=== PATIENT | male | born 1970 | race Hispanic/Latino ===

== ENCOUNTER 2018-01-05 09:48 | Inpatient (IN) | payer MEDICAID ==
[2018-01-05 09:48] VITALS: BMI 29.9
[2018-01-05 10:40] LABS: BASO % 0.7 % (0.0-2.0); EOS # 0.2 K/uL (0.0-0.7); EOS % 2.2 % (0.0-4.0); HEMOGLOBIN 10.4 g/dL (12.0-18.0); LYMPH # 1.2 K/uL (1.0-4.3); LYMPH % 17.1 % (20.0-40.0); MEAN CELL VOLUME 73.6 fL (80.0-94.0); MEAN CORPUSCULAR HEMOGLOBIN 24.5 pg (27.0-31.0); MEAN CORPUSCULAR HGB CONC 33.3 g/dL (33.0-37.0); MEAN PLATELET VOLUME 6.7 fL (7.2-11.7); MONO # 0.7 K/uL (0.0-0.8); MONO % 9.4 % (0.0-10.0); NEUT % 70.6 % (50.0-75.0); RBC 4.26 Mil/uL (4.40-5.90); RED CELL DISTRIBUTION WIDTH 17.2 % (11.5-14.5); WHITE BLOOD COUNT 7.1 K/uL (4.8-10.8)
[2018-01-05 10:46] LABS: URINE BILIRUBIN NEGATIVE (NEGATIVE); URINE BLOOD NEGATIVE (NEGATIVE); URINE CLARITY Clear (Clear); URINE COLOR Yellow (YELLOW); URINE GLUCOSE (UA) NORMAL (Normal); URINE LEUKOCYTE ESTERASE NEG Leu/uL (Negative); URINE PROTEIN NEGATIVE (NEGATIVE); URINE UROBILINOGEN NORMAL mg/dL (0.2-1.0)
[2018-01-05 10:54] LABS: ALB/GLOB RATIO 1.2 (1.0-2.1); ALBUMIN 3.8 g/dL (3.5-5.0); ALT/SGPT 19 U/L (21-72); AST/SGOT 17 U/L (17-59); BLOOD UREA NITROGEN 14 mg/dL (9-20); CALCIUM 9.2 mg/dl (8.6-10.4); GFR AFRICAN-AMERICAN > 60; GFR NON-AFRICAN AMERICAN > 60
[2018-01-05 11:03] LABS: BARBITURATES, UR NEGATIVE (NEGATIVE); BENZODIAZEPINES, UR NEGATIVE (NEGATIVE); PHENCYCLIDINE, UR NEGATIVE (NEGATIVE)
[2018-01-05 11:21] LABS: OPIATES, UR POSITIVE (NEGATIVE)
--- NOTE | 2018-01-05 12:06 | C.PDOC ---
History Of Present Illness 47 y/o male presents to the ER for detox from ETOH and substance abuse. Patient denies having suicidal ideation, homicidal ideation, and active physical complaints. Time Seen by Provider: 01/05/18 09:59 Chief Complaint (Nursing): Substance Abuse History Per: Patient History/Exam Limitations: no limitations Past Medical History Reviewed: Historical Data, Nursing Documentation, Vital Signs Vital Signs: Last Vital Signs Temp 98.7 F 01/05/18 09:52 Pulse 76 01/05/18 09:52 Resp 17 01/05/18 09:52 BP 119/78 01/05/18 09:52 Pulse Ox 97 01/05/18 12:06 - Medical History PMH: Denies: Depression, Diabetes, Hepatitis, HIV, HTN, Seizures, Sexually Transmitted Disease Surgical History: No Surg Hx - [facility] Procedures APPLICATION OF SPLINT (12/01/05) CLOSURE SKIN & SUBCUTANEOUS NEC (12/01/05) Family History: States: No Known Family Hx - Social History Hx Tobacco Use: No Hx Alcohol Use: Yes Hx Substance Use: Yes - Immunization History Hx Tetanus Toxoid Vaccination: Yes Hx Influenza Vaccination: Yes Hx Pneumococcal Vaccination: No Review Of Systems Except As Marked, All Systems Reviewed And Found Negative. Constitutional: Negative for: Fever, Chills Psych: Negative for: Suicidal ideation Physical Exam - Physical Exam Appears: No Acute Distress Skin: Normal Color, Warm, Dry Head: Atraumatic, Normacephalic Eye(s): bilateral: Normal Inspection Nose: Normal Oral Mucosa: Moist Neck: Supple Chest: Symmetrical Cardiovascular: Rhythm Regular Respiratory: Normal Breath Sounds, No Rales, No Rhonchi, No Wheezing Gastrointestinal/Abdominal: Normal Exam, Bowel Sounds ((+) bowel sounds), Soft, No Tenderness, No Guarding, No Rebound Neurological/Psych: Oriented x3, Normal Speech ED Course And Treatment - Laboratory Results Result Diagrams: 01/05/18 10:36 01/05/18 10:36 O2 Sat by Pulse Oximetry: 97 (RA) Pulse Ox Interpretation: Normal Medical Decision Making Medical Decision Making: Assessment: ETOH/ Substance Abuse Plan: --Labs --UA --Librium PO Updates: Patient has been medically cleared and evaluated by Crisis. Patient has been admitted under Dr. Pastor's service. Disposition Discussed With : Aleyda Pastor Doctor Will See Patient In The: Hospital Counseled Patient/Family Regarding: Studies Performed, Diagnosis - Disposition Disposition: HOSPITALIZED Disposition Time: 12:06 Condition: FAIR Forms: [facility] (Malawian) - Clinical Impression Clinical Impression: Opiate abuse, continuous - Scribe Statement The provider has reviewed the documentation as recorded by the Manuelibe Favian Moya Provider Attestation: All medical record entries made by the Scribe were at my direction and personally dictated by me. I have reviewed the chart and agree that the record accurately reflects my personal performance of the history, physical exam, medical decision making, and the department course for this patient. I have also personally directed, reviewed, and agree with the discharge instructions and disposition.
--- NOTE | 2018-01-05 13:14 | PCM.BM ---
<Ginny Cruz - Last Filed: 01/05/18 13:12> Treatment Plan Problems - Problems identified on initial assessmt Potential for alcohol withdrawals Date Initiated: 01/05/18 Assessment reference: NA Treatment assets and liabiliti Patient Assests: cooperative, ADL independent, physically healthy, negotiates basic needs Patient Liabilities: substance abuse - Milieu Protocol Maintain good personal hygiene: daily Encourage regular showers, daily Remind patient to perform daily oral care, daily Assist patient to perform ADL's Conduct patient checks and document Observation sheet: Q15 minutes Maintain personal safety: every shift Educate patient to report safety concerns to staff, every shift Monitor environment for contraband/sharps Medication safety: Monitor for expected outcome, potential side effects: every shift, Assess barriers to learning: every shift, Assess readiness for medication education: every shift <Aleyda Pastor - Last Filed: 01/07/18 10:21> - Diagnosis (1) Alcohol use disorder, severe, dependence Status: Acute Interventions: 01/07/18 10:21 * Assess 7x/week regarding severity of withdrawal * Educate regarding risks, benefits, side effects and alternatives of medications * Use Motivational Interviewing for abstinence * Use CBT for relapse prevention * Medication management for withdrawal symptoms * Encourage medication assisted treatment * (2) Opiate abuse, continuous Status: Acute Interventions: 01/07/18 10:21 * Assess 7x/week regarding severity of withdrawal * Educate regarding risks, benefits, side effects and alternatives of medications * Use Motivational Interviewing for abstinence * Use CBT for relapse prevention * Medication management for withdrawal symptoms * Encourage medication assisted treatment *
[2018-01-05] MEDS ORDERED: Aluminum Hydroxide/Magnesium Hydroxide Susp (30 mL) PO PRN (13:20)
--- NOTE | 2018-01-05 13:24 | PCM.PSYCH ---
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 No seizures or DTs Denies heroin, cigarettes, other drugs He was in [facility] in 2000 for opiates No psych hx NO medical hx No family psych hx Current Medications: Active Medications Generic Name Dose Route Start Last Admin Trade Name Freq PRN Reason Stop Dose Admin Al Hydrox/Mg Hydrox/Simethicone 30 ml 01/05/18 13:20 Maalox 30 Ml PO TID PRN Indigestion / Heartburn Chlordiazepoxide 25 mg 01/05/18 13:19 Librium PO Q4H PRN Alcohol Withdrawal Clonidine HCl 0.1 mg 01/05/18 13:19 Catapres PO Q4H PRN Symptoms of alcohol withdrawl Folic Acid 1 mg 01/05/18 13:30 Folic Acid PO DAILY DASH Loperamide HCl 2 mg 01/05/18 13:20 Imodium PO Q8 PRN Diarrhea Multivitamins 1 tab 01/05/18 13:30 Hexavitamin PO DAILY DASH Ondansetron HCl 4 mg 01/05/18 13:20 Zofran Tab PO Q8 PRN Nausea/Vomiting Thiamine HCl 100 mg 01/05/18 13:30 Vitamin B1 Tab PO DAILY DASH Past Psychiatric History - Past Psychiatric History Previous Treatment History: None Pertinent Medical Hx (Current Medical&Sleep Prob, Allergies): Allergies Allergy/AdvReac Type Severity Reaction Status Date / Time No Known Allergies Allergy Verified 01/05/18 09:55 Ibuprofen [Motrin Tab] 600 mg PO Q8 PRN #20 tab 04/08/17 Tamsulosin [Flomax] 0.4 mg PO DAILY #10 cap 04/08/17 oxyCODONE/Acetaminophen [Percocet 5/325 mg Tab] 1 ea PO Q6 PRN #10 tab 04/08/17 Review of Systems - Psychiatric Psychiatric: Abnormal Sleep Pattern, Anxiety, Difficulty Concentrating. absent : Homicidal Ideation, Paranoia, Suicidal Ideation Mental Status Examination - Personal Presentation Personal Presentation: Looks stated age (oddly related) - Affect Affect: Constricted - Motor Activity Motor Activity: Calm - Reliability in Providing Information Reliability in Providing Information: Fair - Speech Speech: Organized - Mood Mood: Anxious - Formal Thought Process Formal Thought Process: No Impairment - Cognitive Functions Orientation: Person, Place, Situation, Time Sensorium: Alert Attention/Concentration: Attentive Estimate of Intelligence: Average Judgement: Intact, as evidence by: Insight regarding need for hospitalization Memory: Recent intact, as evidence by: Ability to recall events of the day, Remote intact, as evidenced by: Abilit to recall sig. life events - Risk Risk: Withdrawal, Diminished functioning - Strength & Assets Inventory Strength & Assets Inventory: Employment history, Cooperative - Limitations Limitations: Living alone DSM 5 DX - DSM 5 DSM 5 Diagnosis: Alcohol use d/o - severe Opioid use d/o - severe Anemia, likely Iron deficiency - Recommended/Plan of Treatment Treatment Recommendations and Plan of Treatment: librium and methadone detoxes As needed medications Gabapentin for augmentation if needed All risks, benefits and alternatives of medications, including no medications, discussed and the patient understood and agreed. Attend groups and activities Supportive therapy and psychoeducation MS for abstinence CBT for relapse prevention Encourage MAT Refer to rehab or IOP Attend self-help groups as well MS for smoking cessation and patch if needed 34 min Projected ELOS: 4 days - Smoking Cessation Smoking Cessation Initiated: No Reason for not providing: non smoker
[2018-01-05] MEDS: Multiple Vitamins Tab PO SCH (13:54)
[2018-01-05 17:14] LABS: IRON 15 ug/dL (49-181)
[2018-01-05 17:25] LABS: % IRON SATURATION 4 (20-55); TOTAL IRON BINDING CAPACITY 430 ug/dL (250-450)
[2018-01-05 17:51] LABS: FERRITIN 11.8 ng/mL
[2018-01-06] MEDS: Multiple Vitamins Tab PO SCH (09:36)
--- NOTE | 2018-01-06 14:15 | PCM.PYCHPN ---
Psychiatric Progress Note - Psychiatric Progress Note Patient seen today, length of contact: 16 min Patient Chief Complaint: "anxious" Problems Identified/Issues Discussed: The pt is seen, chart reviewed, case discussed with staff. The pt is compliant with medications and reports no side-effects. Symptoms are improving but needs more time to stabilize. After care discussed, support and psychoeducation given. He asked for a note to prove he completed detox, which he needed to resume work Sx-triggered detox Will go to [facility] in [place] Medication Change: Yes (add feosol) Medical Record Reviewed: Yes Mental Status Examination - Cognitive Function Orientation: Person, Place, Situation, Time Memory: Intact Attention: Poor Concentration: Poor Association: WNL Fund of Knowledge: WNL - Mood Mood: Anxious - Affect Affect: Constricted - Speech Speech: Appropriate - Formal Thought Process Formal Thought Process: No Impairment - Suicidal Ideation Suicidal Ideation: No - Homicidal Ideation Homicidal Ideation: No Goal/Treatment Plan - Goal/Treatment Plan Need for Continued Stay: Discharge may exacerbated symptoms, Severe functional impairment Progress Toward Problem(s) and Goals/Treatment Plan: Continue medications Support and psychoeducation daily Attend groups and activities daily After care planning by DIANE Estimated Date of D/C: 01/07/18
[2018-01-07 06:11] VITALS: RESP 20
[2018-01-07 08:27] VITALS: BP 130/82; PULSE 83; TEMP 98.5; O2SAT 99
[2018-01-07] MEDS: Multiple Vitamins Tab PO SCH (09:43)
--- NOTE | 2018-01-07 23:55 | PCM.PYCHDC ---
Mental Status Examination - Mental Status Examination Orientation: Person, Place, Situation, Time Memory: Intact Mood: Neutral Affect: Other (Appropriate) Speech: Appropriate Attention: WNL Concentration: WNL Association: WNL Fund of Knowledge: WNL Formal Thought Process: No Impairment Description of patient's judgement and insight: Fair Psychotic Thoughts and Behaviors: None Suicidal Ideation: No Current Homicidal Ideation?: No Discharge Summary - Discharge Note Reason for Hospitalization: Opiate use disorder Alcohol use disorder Laboratory Data: Reviewed Consultations:: List each consultation separately and include: 1. Reason for request. 2. Findings. 3. Follow-up Summary of Hospital Course include:: 1. Description of specific treatment plan utilized for patients during their course of treatmen. 2. Summarize the time- course for resolution of acute symptoms and/or regressed behaviors. 3. Describe issues identified and worked on during hospitalization. 4. Describe medication utilized. 5. Describe medical problems identified and treated. 6. 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 No seizures or DTs Denies heroin, cigarettes, other drugs He was in [facility] in 2000 for opiates During his stay in the hospital patient was treated with Librium, buprenorphine and other medications. With treatment, patient started feeling better, had no withdrawal symptoms. Today patient was stable and ready for discharge. At the time of evaluation and discharge, patient was awake alert oriented 3, had no delusions, no auditory or visual hallucinations, no suicidal ideations or homicidal ideations. Patient was discharged in a stable condition. - Final Diagnosis (DSM 5) Condition upon Discharge: GOOD DSM 5: Improving with treatment Disposition: HOME/ ROUTINE Follow-up Treatment Plan: Patient will go to [facility] for follow-up care after discharge from the hospital. Prescriptions/Medication Reconciliation: cloNIDine [Catapres] 0.1 mg PO BID PRN #20 tab PRN Reason: Symptoms Of Alcohol Withdrawl Docusate [Colace] 100 mg PO DAILY #30 cap Ferrous Sulfate [Feosol] 325 mg PO TID #90 tab Gabapentin [Neurontin] 300 mg PO TID #60 cap Tamsulosin [Flomax] 0.4 mg PO DAILY #30 cap traZODone [Desyrel] 100 mg PO HS #30 tab - Smoking Cessation Smoking Cessation Medication prescribed: No - Antipsychotic Medications Pt discharged on 2 or more routine antipsychotic medications: No
== END 2018-01-07 12:20 | disposition home or self-care (01) | DRG 745 ==
LOC: C.ER 09:48 → C.9E 12:05 → C.7D 12:28
PROVIDERS: ADMIT Psychiatry & Neurology Psychiatry; ATTEND Psychiatry & Neurology Psychiatry
DX: F11.10 Opioid abuse, uncomplicated (principal); F10.20 Alcohol dependence, uncomplicated; D50.9 Iron deficiency anemia, unspecified

== ENCOUNTER 2018-07-23 12:35 | Emergency (ER) | payer MEDICAID ==
--- NOTE | 2018-07-23 13:06 | C.PDOC ---
History Of Present Illness 48 yr old male w/ hx of etoh abuse and depression p/w request for detox. Pt notes that he was at [facility] yesterday and d/c after etoh. He denies drinking etoh since and is requesting detox from percocet and heroin abuse. No recent use of either over the past 48 hours. No falls or trauma. No neck pain, headache, fever, chills or night sweats. No dark or bloody stool. No constipation or diarrhea. No abdominal pain. No chest pain. No other complaints. Time Seen by Provider: 07/23/18 13:05 Past Medical History - Medical History PMH: Depression Denies: Diabetes, Hepatitis, HIV, HTN, Seizures, Sexually Transmitted Disease - [facility] Procedures APPLICATION OF SPLINT (12/01/05) CLOSURE SKIN & SUBCUTANEOUS NEC (12/01/05) Family History: States: Unknown Family Hx - Social History Hx Tobacco Use: No Hx Alcohol Use: Yes (Beer) Hx Substance Use: Yes (PERCOCET) - Immunization History Hx Tetanus Toxoid Vaccination: Yes Hx Influenza Vaccination: Yes Hx Pneumococcal Vaccination: No Review Of Systems Constitutional: Negative for: Fever, Chills, Sweats, Weakness, Malaise Eyes: Negative for: Pain, Vision Change ENT: Negative for: Ear Pain, Ear Discharge, Nose Congestion, Mouth Pain Cardiovascular: Negative for: Chest Pain, Palpitations, Edema, Light Headedness Respiratory: Negative for: Cough, Shortness of Breath, SOB with Excertion Gastrointestinal: Negative for: Nausea, Vomiting, Abdominal Pain, Constipation Genitourinary: Negative for: Dysuria, Hematuria Musculoskeletal: Negative for: Neck Pain, Back Pain Skin: Negative for: Rash Neurological: Negative for: Weakness, Numbness, Seizures, Headache Psych: Negative for: Anxiety, Depression, Suicidal ideation, Withdrawal Physical Exam - Physical Exam Appears: Well, Non-toxic, No Acute Distress Skin: Normal Color, Warm Head: Atraumatic, Normacephalic Eye(s): bilateral: Normal Inspection, PERRL, EOMI Nose: Normal Oral Mucosa: Moist Tongue: Normal Appearing Lips: Normal Appearing Gingiva: Normal Appearing Neck: Normal, Normal ROM, Supple, Other (no meningeal signs) Chest: Symmetrical Cardiovascular: Rhythm Regular Respiratory: Normal Breath Sounds Gastrointestinal/Abdominal: Normal Exam, Soft, No Tenderness, No Distention, No Guarding Back: Normal Inspection, No CVA Tenderness Neurological/Psych: Oriented x3, Normal Speech, Normal Cognition, No Cerebellar Signs, Normal Motor Gait: Steady Medical Decision Making Medical Decision Makin yr old male w/ hx of depression, etoh abus, opiate abuse p/w request for detox. no meningeal signs. unremarkable neuro exam. Pt w/ steady gait and no signs of withdrawal. no other issues per pt. No other complaints. Will contact [facility]. [phone] appreciate consult w/ [facility]: No beds available pt given materials and resources for f/u. pt has not other complaints and denies any SI or HI or depression. Neuro exam remains unremarkable and pt denies any other complaints Pt in NAD, Clear for d/c home. Disposition - Disposition Disposition Time: 14:00 Condition: GOOD - Clinical Impression Clinical Impression: Drug abuse, Desire for detoxification
[2018-07-23 13:17] VITALS: BMI 33.5
[2018-07-23 13:19] VITALS: BP 129/75; PULSE 94; RESP 18; TEMP 98.5; O2SAT 96
== END 2018-07-23 14:07 | disposition home or self-care (01) ==
LOC: C.ER 12:35
DX: F19.10 Other psychoactive substance abuse, uncomplicated (principal)

== ENCOUNTER 2018-08-13 18:02 | Inpatient (IN) | payer MEDICAID ==
[2018-08-13 18:02] VITALS: BMI 27.3
[2018-08-13 19:31] LABS: BASO # 0.1 K/uL (0.0-0.2); BASO % 0.9 % (0.0-2.0); EOS # 0.3 K/uL (0.0-0.7); EOS % 4.2 % (0.0-4.0); HEMOGLOBIN 8.1 g/dL (12.0-18.0); LYMPH # 1.3 K/uL (1.0-4.3); LYMPH % 21.9 % (20.0-40.0); MEAN CELL VOLUME 61.3 fL (80.0-94.0); MEAN CORPUSCULAR HEMOGLOBIN 18.6 pg (27.0-31.0); MEAN CORPUSCULAR HGB CONC 30.3 g/dL (33.0-37.0); MEAN PLATELET VOLUME 6.5 fL (7.2-11.7); MONO # 0.7 K/uL (0.0-0.8); MONO % 11.6 % (0.0-10.0); NEUT # 3.7 K/uL (1.8-7.0); NEUT % 61.4 % (50.0-75.0); RBC 4.38 Mil/uL (4.40-5.90); RED CELL DISTRIBUTION WIDTH 18.7 % (11.5-14.5)
[2018-08-13 19:37] LABS: URINE BACTERIA FEW (<OCC); URINE BILIRUBIN 1+ (NEGATIVE); URINE BLOOD NEGATIVE (NEGATIVE); URINE CLARITY Clear (Clear); URINE COLOR Yellow (YELLOW); URINE GLUCOSE (UA) NORMAL (Normal); URINE LEUKOCYTE ESTERASE NEG Leu/uL (Negative); URINE PROTEIN NEGATIVE (NEGATIVE)
--- NOTE | 2018-08-13 19:38 | C.PDOC ---
History Of Present Illness 48 y/o male presents to ED requesting heroin and percocet detox. Patient states last use was by snorting. Patient reports no medical problems and has no physical complaints at this moment. Patient denies fever, chills, nausea, dizzi ness, palpitations, generalized weakness, or vomiting. Patient is currently starting to feel jittery. Time Seen by Provider: 08/13/18 18:59 Chief Complaint (Nursing): Substance Abuse History Per: Patient History/Exam Limitations: no limitations Onset/Duration Of Symptoms: Days Current Symptoms Are (Timing): Still Present Past Medical History Reviewed: Historical Data, Nursing Documentation, Vital Signs Vital Signs: Last Vital Signs Temp 98.4 F 08/13/18 18:09 Pulse 91 H 08/13/18 18:09 Resp 20 08/13/18 18:09 BP 101/67 08/13/18 18:09 Pulse Ox 95 08/13/18 18:09 - Medical History PMH: Depression Denies: Diabetes, Hepatitis, HIV, HTN, Seizures, Sexually Transmitted Disease - [facility] Procedures APPLICATION OF SPLINT (12/01/05) CLOSURE SKIN & SUBCUTANEOUS NEC (12/01/05) Family History: States: No Known Family Hx - Social History Hx Tobacco Use: No Hx Alcohol Use: Yes (Beer) Hx Substance Use: Yes (PERCOCET) - Immunization History Hx Tetanus Toxoid Vaccination: Yes Hx Influenza Vaccination: Yes Hx Pneumococcal Vaccination: No Review Of Systems Except As Marked, All Systems Reviewed And Found Negative. Constitutional: Negative for: Fever, Chills Gastrointestinal: Negative for: Nausea, Vomiting Physical Exam - Physical Exam Appears: Non-toxic, No Acute Distress Skin: Warm, Dry, No Rash Head: Atraumatic, Normacephalic Eye(s): bilateral: Normal Inspection, PERRL, EOMI Oral Mucosa: Moist Neck: Normal ROM, Supple Chest: Symmetrical Cardiovascular: Rhythm Regular, No Murmur Respiratory: Normal Breath Sounds, No Rales, No Rhonchi, No Wheezing Gastrointestinal/Abdominal: Soft, No Tenderness Extremity: Bilateral: Atraumatic, Normal Color And Temperature, Normal ROM Neurological/Psych: Oriented x3, Normal Speech Gait: Steady ED Course And Treatment - Laboratory Results Result Diagrams: 08/13/18 19:26 08/13/18 19:26 O2 Sat by Pulse Oximetry: 95 (RA) Pulse Ox Interpretation: Normal Medical Decision Making Medical Decision Making: Plan: --Bloodwork --Urinalysis Patient medically cleared. He is anemic, but asymptomatic. H/H steady decrease since last year, recommend medical consult or medical follow up upon D/C. Disposition - Disposition Disposition: HOSPITALIZED Disposition Time: 21:10 Condition: STABLE Forms: [facility] ([place] Islander) - Clinical Impression Clinical Impression: Opioid use disorder, Alcohol use disorder - Scribe Statement The provider has reviewed the documentation as recorded by the Alyse Peterson Provider Attestation: All medical record entries made by the Alyse were at my direction and personally dictated by me. I have reviewed the chart and agree that the record accurately reflects my personal performance of the history, physical exam, medical decision making, and the department course for this patient. I have also personally directed, reviewed, and agree with the discharge instructions and disposition. Decision To Admit - Pt Status Changed To: Hospital Disposition Of: Inpatient - Admit Certification Admit to Inpatient:: After my assessment, the patient will require hospitalization for at least two midnights. This is because of the severity of symptoms shown, intensity of services needed, and/or the medical risk in this patient being treated as an outpatient. - InPatient: Physician Admission Certification: I certify that this patient requires 2 or more midnights of care for the following reason:: needs inpatient detox, - . Bed Request Type: Detox Patient Diagnosis: Opioid use disorder, Alcohol use disorder
[2018-08-13 19:48] LABS: ALB/GLOB RATIO 1.4 (1.0-2.1); ALBUMIN 3.9 g/dL (3.5-5.0); ALT/SGPT 22 U/L (21-72); AST/SGOT 34 U/L (17-59); BARBITURATES, UR NEGATIVE (NEGATIVE); BENZODIAZEPINES, UR NEGATIVE (NEGATIVE); BLOOD UREA NITROGEN 14 mg/dL (9-20); GFR NON-AFRICAN AMERICAN > 60; PHENCYCLIDINE, UR NEGATIVE (NEGATIVE)
[2018-08-13 19:53] LABS: OPIATES, UR POSITIVE (NEGATIVE)
--- NOTE | 2018-08-13 21:32 | PCM.BM ---
<Gayatri Alfaro - Last Filed: 08/13/18 21:30> Treatment Plan Problems - Problems identified on initial assessmt potiential for opiate withdrawal Date Initiated: 08/13/18 Time Initiated: 21:31 Assessment reference: NA Status: Active Treatment assets and liabiliti Patient Assests: cooperative, ADL independent, physically healthy, negotiates basic needs Patient Liabilities: substance abuse, medical problems - Milieu Protocol Maintain good personal hygiene: daily Encourage regular showers, daily Remind patient to perform daily oral care, daily Assist patient to perform ADL's Maintain personal safety: every shift Educate patient to report safety concerns to staff, every shift Monitor environment for contraband/sharps Medication safety: Monitor for expected outcome, potential side effects: every shift, Assess barriers to learning: every shift, Assess readiness for medication education: every shift <Jessie Baker - Last Filed: 08/16/18 11:14> Family Contact Family involvement: Famliy/SO not involved - Goals for Treatment Patient goals for treatment: Complete detox and transition to short term rehab. Discharge/Continuing Care - Education Needs Education Needs: Patient Medication, Patient Diagnosis/Disease Process, Patient Coping Skills, Patient Anger Management skills, Patient Placement options, Patient Community resources - Discharge Discharge Criteria: No longer exhibiting s/s of withdrawal, Reduction of target symptoms Discharge to:: Substance Abuse Rehab - Treatment Team Participation Patient/Family/SO Statement: 08/16/18 11:13 "I wanna go to rehab but only for a month..." Discussed with Family/SO: No Was Patient/Family/SO present at Treatment Team Meeting: Yes
[2018-08-13] MEDS ORDERED: Aluminum Hydroxide/Magnesium Hydroxide Susp (30 mL) PO PRN (21:49)
--- NOTE | 2018-08-14 11:29 | PCM.PSYCH ---
Initial Psychiatric Evaluation - Initial Psychiatric Evaluation Type of Admission: Voluntary Legal Status: Capacity Chief Complaint (in patient's own words): "I don't feel well" History of Present Illness and Precipitating Events: Patient is seen, chart reviewed, case discussed. Patient is a 48 year old male who is currently single, homeless, and is unemployed. He came to detox yesterday morning for detox from heroin. He last used 10 bags of heroin, yesterday. He normally does 1-2 bundles a day. Hes been using heroin for 2-3 years, through sniffing. Before using heroin, he used to use Percocet, for several months. He obtained Percocet from the street. Dose unknown. He says he came to detox 5 months ago. When asked about alcohol use, he states that he drinks a 6 pack of beer, a day. He denies tobacco use. For psychiatric history, he states that recently he felt very depressed and unable to function but he now denies any suicidal or homicidal ideation. He says his sleep is so so, his energy is low, and he currently feels guilty. He also occasionally gets racing thoughts. He denies any auditory or visual hallucinations. From 2000 to 2005 he was incarcerated for selling drugs and guns. As per patient, hes been locked up and in and out of youth houses since he was 10 years old. As a child, he saw a therapist for "hyperactivity" and took special ed classes for his dyslexia. Psych History- As above, no admissions or suicide attempts. He looks slightly cognitively impaired. Family Psych History -denies. PMH- Anemia (iron deficiency) Current Medications: Active Medications Generic Name Dose Route Start Last Admin Trade Name Faina PRN Reason Stop Dose Admin Al Hydrox/Mg Hydrox/Simethicone 30 ml 08/13/18 21:49 Maalox 30 Ml PO TID PRN Indigestion / Heartburn Clonidine HCl 0.1 mg 08/13/18 21:49 Catapres PO Q4 PRN COWS Score More or Equal to 5 Dicyclomine HCl 10 mg 08/13/18 21:55 Bentyl PO Q6 PRN Abdominal cramps Gabapentin 300 mg 08/14/18 10:00 08/14/18 09:50 Neurontin PO 300 mg TID DASH Administration Ibuprofen 400 mg 08/13/18 21:54 Motrin Tab PO Q6 PRN Pain, moderate (4-7) Loperamide HCl 2 mg 08/13/18 21:49 Imodium PO Q8 PRN Diarrhea Methadone HCl 15 mg 08/14/18 10:00 08/14/18 09:50 Methadone PO 08/17/18 09:59 15 mg Q24H DASH Administration Taper Ondansetron HCl 4 mg 08/13/18 21:49 Zofran Tab PO Q8 PRN Nausea/Vomiting Trazodone HCl 50 mg 08/13/18 22:00 08/13/18 22:08 Desyrel PO 50 mg HS DASH Administration Past Psychiatric History - Past Psychiatric History Previous Treatment History: Intensive Outpatient Pertinent Medical Hx (Current Medical&Sleep Prob, Allergies): Allergies Allergy/AdvReac Type Severity Reaction Status Date / Time No Known Allergies Allergy Verified 08/07/18 00:16 No Known Home Med 08/13/18 Review of Systems - Neurological Neurological: Tremor - Psychiatric Psychiatric: Abnormal Sleep Pattern, Anhedonia, Anxiety, Depression, Difficulty Concentrating. absent: Hallucinations, Homicidal Ideation, Paranoia, Suicidal Ideation Mental Status Examination - Personal Presentation Personal Presentation: Looks stated age (odd, slow in response) - Affect Affect: Constricted - Motor Activity Motor Activity: Calm - Reliability in Providing Information Reliability in Providing Information: Fair - Speech Speech: Organized (but slowed) - Mood Mood: Depressed, Anxious - Formal Thought Process Formal Thought Process: No Impairment - Cognitive Functions Orientation: Person, Place, Situation, Time Sensorium: Alert Attention/Concentration: Easily distracted Abstract Thinking: [place] Estimate of Intelligence: Below average Judgement: Intact, as evidence by: Insight regarding need for hospitalization Memory: Recent intact, as evidence by: Ability to recall events of the day, Remote impaired as evidenced by: Inability to recall sig life events - Risk Risk: Withdrawal, Diminished functioning - Strength & Assets Inventory Strength & Assets Inventory: Cooperative - Limitations Limitations: Living alone, Other DSM 5 DX - DSM 5 DSM 5 Diagnosis: Opioid withdrawal Opioid use d/o - severe Alcohol use d/o - moderate Depressive d/o - unspecified r/o borderline ID Learning disorder - unspecified - Recommended/Plan of Treatment Treatment Recommendations and Plan of Treatment: Taper with Methadone Gabapentin for augmentation if needed Monitor alcohol wdw Remeron for depression Feosol for anemia Lab work for anemia As needed medications All risks, benefits and alternatives of the meds discussed, and the pt agreed and understood. Attend groups and activities Supportive therapy and psychoeducation [place] for abstinence CBT for relapse prevention Encourage MAT Refer to rehab or IOP, and self-help groups Teach healthy lifestyle methods, i.e. diet, exercise, meditation 34 min Projected ELOS: 5 days - Smoking Cessation Smoking Cessation Initiated: Yes
[2018-08-14 16:43] VITALS: RESP 18
[2018-08-15] MEDS ORDERED: Ergocalciferol 50,000 Intl Units Cap PO SCH (00:30)
[2018-08-15] MEDS: Multiple Vitamins Tab PO SCH (09:54)
[2018-08-15] MEDS ORDERED: Bacitracin 500 Units/gm Oint Foilpak UD TOP PRN (09:57)
[2018-08-15 14:12] LABS: IRON 291 ug/dL (49-181)
[2018-08-15 14:22] LABS: % IRON SATURATION 70 (20-55); TOTAL IRON BINDING CAPACITY 417 ug/dL (250-450)
[2018-08-15 14:47] LABS: FERRITIN 9.4 ng/mL
--- NOTE | 2018-08-15 18:30 | RAD ---
HISTORY: rehab COMPARISON: No prior. TECHNIQUE: Chest PA and lateral FINDINGS: LUNGS: No focal consolidation. Please note that chest x-ray has limited sensitivity for the detection of pulmonary masses. PLEURA: No significant pleural effusion identified. No definite pneumothorax . CARDIOVASCULAR: Heart size appears within normal limits. No atherosclerotic calcification present. OSSEOUS STRUCTURES: Degenerative changes of the spine. VISUALIZED UPPER ABDOMEN: Unremarkable. OTHER FINDINGS: None. IMPRESSION: No focal consolidation.
[2018-08-16] MEDS: Multiple Vitamins Tab PO SCH (09:03)
--- NOTE | 2018-08-16 09:54 | PCM.PYCHDC ---
Mental Status Examination - Mental Status Examination Orientation: Person, Place, Situation, Time Memory: Intact Mood: Anxious Affect: Constricted Speech: Appropriate Attention: WNL Concentration: WNL Association: WNL Fund of Knowledge: WNL Formal Thought Process: No Impairment Suicidal Ideation: No Current Homicidal Ideation?: No Discharge Summary - Discharge Note Laboratory Data: Abnormal Lab Results 08/15/18 08/15/18 08/15/18 13:54 13:54 13:54 ESR 13 Retic Count 1.4 Iron 291 H TIBC 417 % Saturation 70 H Ferritin 9.4 TSH 3rd Generation 1.37 Consultations:: List each consultation separately and include: 1. Reason for request. 2. Findings. 3. Follow-up Summary of Hospital Course include:: 1. Description of specific treatment plan utilized for patients during their course of treatmen. 2. Summarize the time- course for resolution of acute symptoms and/or regressed behaviors. 3. Describe issues identified and worked on during hospitalization. 4. Describe medication utilized. 5. Describe medical problems identified and treated. 6. Reassessment of suicide risk Summary of Hospital Course: Patient is seen, chart reviewed, case discussed. Patient is a 48 year old male who is currently single, homeless, and is unemployed. He came to detox yesterday morning for detox from heroin. He last used 10 bags of heroin, yesterday. He normally does 1-2 bundles a day. Hes been using heroin for 2-3 years, through sniffing. Before using heroin, he used to use Percocet, for several months. He obtained Percocet from the street. Dose unknown. He says he came to detox 5 months ago. When asked about alcohol use, he states that he drinks a 6 pack of beer, a day. He denies tobacco use. For psychiatric history, he states that recently he felt very depressed and unable to function but he now denies any suicidal or homicidal ideation. He says his sleep is so so, his energy is low, and he currently feels guilty. He also occasionally gets racing thoughts. He denies any auditory or visual hallucinations. From 2000 to 2005 he was incarcerated for selling drugs and guns. As per patient, hes been locked up and in and out of youth houses since he was 10 years old. As a child, he saw a therapist for "hyperactivity" and took special ed classes for his dyslexia. Psych History- As above, no admissions or suicide attempts. He looks slightly cognitively impaired. Family Psych History -denies. PMH- Anemia (iron deficiency) Hospital course: The pt was admitted and started on treatment with psychotherapy, support, psychoeducation and medications. AL and CBT used. The pt attended groups and activities, as well as milieu therapy. All the risks and benefits of medications are discussed and the patient understood and agreed. The pt improved with the treatments provided. After care discussed with the patient. He will go to [facility] in [place]. - Final Diagnosis (DSM 5) Condition upon Discharge: STABLE DSM 5: Opioid withdrawal Opioid use d/o - severe Alcohol use d/o - moderate Depressive d/o - unspecified r/o borderline ID Learning disorder - unspecified Disposition: HOME/ ROUTINE Follow-up Treatment Plan: Continue below medications after discharge. Follow after care plan as discussed. Use relapse prevention skills Return to ER or call 911 if suicidal, homicidal or symptoms relapse. Stay away from stress, alcohol and drugs. See primary doctor regularly and get labs. Prescriptions/Medication Reconciliation: Gabapentin [Neurontin] 300 mg PO TID #90 cap traZODone [Desyrel] 50 mg PO HS #30 tab
--- NOTE | 2018-08-16 09:54 | PCM.PYCHPN ---
Psychiatric Progress Note - Psychiatric Progress Note Patient Chief Complaint: "I don't feel well" Medication Change: Yes Medical Record Reviewed: Yes Mental Status Examination - Cognitive Function Orientation: Person - Mood Mood: Depressed, Anxious - Affect Affect: Constricted - Formal Thought Process Formal Thought Process: No Impairment - Homicidal Ideation Homicidal Ideation: No Goal/Treatment Plan - Goal/Treatment Plan Progress Toward Problem(s) and Goals/Treatment Plan: Taper with Methadone Gabapentin for augmentation if needed Monitor alcohol wdw Remeron for depression Feosol for anemia Lab work for anemia As needed medications All risks, benefits and alternatives of the meds discussed, and the pt agreed and understood. Attend groups and activities Supportive therapy and psychoeducation [place] for abstinence CBT for relapse prevention Encourage MAT Refer to rehab or IOP, and self-help groups Teach healthy lifestyle methods, i.e. diet, exercise, meditation 34 min
[2018-08-16 11:08] VITALS: BP 107/71; PULSE 89; TEMP 99.8; O2SAT 97
== END 2018-08-16 11:00 | disposition home or self-care (01) | DRG 745 ==
LOC: C.ER 18:02 → C.7D 21:11
PROC: GZHZZZZ Group Psychotherapy (ICD-10-PCS; principal; 2018-08-13)
PROC: GZ56ZZZ Individual Psychotherapy, Supportive (ICD-10-PCS; 2018-08-13)
DX: F11.23 Opioid dependence with withdrawal (principal); F10.10 Alcohol abuse, uncomplicated; F32.9 Major depressive disorder, single episode, unspecified; D64.9 Anemia, unspecified; F90.9 Attention-deficit hyperactivity disorder, unspecified type; R48.0 Dyslexia and alexia; Z59.0 Homelessness